=== PATIENT | female | born 1950 | race Caucasian/White ===

== ENCOUNTER → 2024-01-30 09:20 | Outpatient (REF) | payer MEDICARE, OTHER, SELFPAY ==
[2024-01-30 10:50] LABS: % Basophils 0.5 % (0-2); % Eosinophils 1.3 % (0-6); % Immature Granulocytes 0.6 % (0-0.5); % Lymphocytes 20.7 % (20.5-51.1); % Monocytes 6.9 % (1.7-9.3); Absolute Eosinophils 0.1 10^3/uL (0-0.7); Absolute Lymphocytes 1.3 10^3/uL (1.2-3.4); Absolute Monocytes 0.4 10^3/uL (0.1-0.6); Absolute Neutrophils 4.3 10^3/uL (1.4-6.5); Hematocrit 36.5 % (37.0-47.0); Mean Corp Hgb Conc. 32.9 g/dL (33.0-37.0); Mean Corpuscular Hgb 30.1 pg (27.0-31.0); Mean Corpuscular Volume 91.5 fL (81.0-99.0); Mean Platelet Volume 9.7 fL (7.4-10.4); Nucleated Red Blood Cells % 0 %; Platelet Count 264 10^3/uL (130-400); Red Blood Cell Count 3.99 10^6/uL (4.20-5.40); Red Cell Dist. Width 14.2 % (11.5-14.5); White Blood Cell Count 6.2 10^3/uL (4.8-10.8)
[2024-01-30 11:20] LABS: ALT (SGPT) 20 U/L (0-35); AST (SGOT) 34 U/L (14-36); Albumin 4.1 g/dl (3.5-5.0); Alkaline Phosphatase 101 U/L (38-126); Blood Urea Nitrogen 20 mg/dl (7-17); Calcium 9.5 mg/dl (8.4-10.2); Carbon Dioxide 32 mmol/L (22-30); Chloride 102 mmol/L (98-107); Direct Bilirubin 0.3 mg/dl (0.0-0.4); Glucose 110 mg/dl (70-99); HDL Cholesterol 62 mg/dl; Iron 74 ug/dl (37-170); LDL Cholesterol, Calculated 147 mg/dl; Sodium 141 mmol/L (135-145); Total Bilirubin 0.7 mg/dl (0.2-1.3); Total Cholesterol 225 mg/dl (50-199); Total Protein 6.9 g/dl (6.3-8.2); Triglyceride 83 mg/dl (10-149); Very Low Density Lipoprotein 16 mg/dl (0-30); eGFR 59.86
[2024-01-30 11:51] LABS: TSH 1.91 uIU/ml (0.47-4.68)
[2024-01-30 12:10] LABS: Vitamin B12 462 pg/ml (239-931)
== END ==
LOC: REG 09:20
PROVIDERS: ATTENDING PHYSICIAN Internal Medicine Gastroenterology; FAMILY PHYSICIAN Family Medicine
DX: D64.9 Anemia, unspecified (principal); I25.10 Atherosclerotic heart disease of native coronary artery without angina pectoris; M79.18 Myalgia, other site; Z79.899 Other long term (current) drug therapy; K83.9 Disease of biliary tract, unspecified; R14.0 Abdominal distension (gaseous)
CPT/HCPCS: 36415; 80053; 80061; 82248; 82607; 82728; 83540; 84443; 85025

== ENCOUNTER → 2024-02-07 12:49 | Outpatient (REF) | payer MEDICARE, OTHER, SELFPAY | LOC: RAD 12:49 | PROVIDERS: ATTENDING PHYSICIAN Internal Medicine Gastroenterology; FAMILY PHYSICIAN Family Medicine | DX: K83.9 Disease of biliary tract, unspecified (principal) | CPT/HCPCS: 76700 ==

== ENCOUNTER → 2024-02-25 06:31 | Day surgery (SDC) | payer MEDICARE, OTHER, SELFPAY | LOC: GI 06:31 | PROVIDERS: ATTENDING PHYSICIAN Internal Medicine Gastroenterology | DX: K57.30 Diverticulosis of large intestine without perforation or abscess without bleeding (principal); Z86.0101 Personal history of adenomatous and serrated colon polyps; K22.89 Other specified disease of esophagus; K44.9 Diaphragmatic hernia without obstruction or gangrene; K31.89 Other diseases of stomach and duodenum; K21.00 Gastro-esophageal reflux disease with esophagitis, without bleeding | CPT/HCPCS: 45378; 43239; 88305; 88342 ==

== ENCOUNTER 2024-06-14 17:45 | Emergency (ER) | payer MEDICARE, OTHER, SELFPAY ==
[2024-06-14] VITALS (7 sets, daily range): BP systolic 130–152; BP diastolic 71–92; BMI 28.9
[2024-06-14 18:12] LABS: % Basophils 0.5 % (0-2); % Eosinophils 0.6 % (0-6); % Immature Granulocytes 0.6 % (0-0.5); % Lymphocytes 18.5 % (20.5-51.1); % Monocytes 6.6 % (1.7-9.3); % Neutrophils 73.2 % (42.2-75.2); Absolute Lymphocytes 1.2 10^3/uL (1.2-3.4); Absolute Monocytes 0.4 10^3/uL (0.1-0.6); Absolute Neutrophils 4.6 10^3/uL (1.4-6.5); Hematocrit 39.9 % (37.0-47.0); Mean Corp Hgb Conc. 32.6 g/dL (33.0-37.0); Mean Corpuscular Hgb 28.5 pg (27.0-31.0); Mean Corpuscular Volume 87.5 fL (81.0-99.0); Mean Platelet Volume 8.9 fL (7.4-10.4); Nucleated Red Blood Cells % 0 %; Platelet Count 222 10^3/uL (130-400); Red Blood Cell Count 4.56 10^6/uL (4.20-5.40); Red Cell Dist. Width 14.8 % (11.5-14.5); White Blood Cell Count 6.3 10^3/uL (4.8-10.8)
[2024-06-14 18:36] LABS: ALT (SGPT) 37 U/L (0-35); AST (SGOT) 63 U/L (14-36); Albumin 4.4 g/dl (3.5-5.0); Alkaline Phosphatase 96 U/L (38-126); Blood Urea Nitrogen 23 mg/dl (7-17); Calcium 8.9 mg/dl (8.4-10.2); Carbon Dioxide 31 mmol/L (22-30); Chloride 98 mmol/L (98-107); Glucose 101 mg/dl (70-99); Lipase 43 U/L (23-300); Potassium 3.8 mmol/L (3.5-5.1); Sodium 137 mmol/L (135-145); Total Bilirubin 0.6 mg/dl (0.2-1.3); Total Protein 7.5 g/dl (6.3-8.2); eGFR > 60.00
[2024-06-14 19:47] LABS: Urine Albumin Negative (Neg - Trace); Urine Bilirubin Negative (Negative); Urine Character Clear (Clear); Urine Color Yellow; Urine Glucose Negative (Negative); Urine Ketone Trace (Negative); Urine Leukocyte Negative (Negative); Urine Nitrite Negative (Negative); Urine Occult Blood 1+ (Negative); Urine Urobilinogen Negative (Neg - 1+)
[2024-06-14 20:00] LABS: Urine Squamous Cell 26-30 /LPF (Few)
[2024-06-14 20:01] LABS: Urine Bacteria Few (Negative); Urine Red Blood Cell 0-2 /HPF (0-2); Urine White Cell 0-2 /HPF (0-5)
--- NOTE | 2024-06-14 23:30 | ED.GENMED ---
History of Present Illness
General
Chief Complaint: Abdominal Pain
Source: patient
Exam Limitations: none
Time Seen by Provider: 06/14/24 18:42
Nursing documentation reviewed up to this point in time: agreed with
History of Present Illness
History of Present Illness:
Patient to ED with complaint of RUQ abdominal pain. Pain started this afternoon. Describes as sharp. SHe had 1 episode of vomiting and then came to ED. Since arrival in ED pain has subsided. States she had this pain in February and was told she
had gallstones and her bile duct was enlarged. She was advised to have MRI and follow up with general surgery. States she had to cancel her appt due to getting covid and never rescheduled. Brought to ED by friend for eval.
Past History
Past History
ED Past Medical History: Arrthythmia (Atrial fibrillation), Asthma, GERD, HTN, Hypercholesterolemia, Hypothyroidism and Other (IBS, gallstones, Diverticulitis)
ED Past Surgical History: (X 2) and Gynecological (Hysterectomy)
Social History
Tobacco: Non-smoker
Alcohol: Occasional
Personal:
Living: with family
Employment: Not employed
Family History
Family History: Other (Noncontributory)
Review of Systems
Review of Systems
Allergies reviewed?: Yes
All Other Systems: ROS reviewed and negative except as documented in HPI and ROS
Constitutional: Reports no symptoms
EENT: Reports no symptoms
Respiratory: Reports no symptoms
Cardiac: Reports no symptoms
ABD/GI: Reports no symptoms (RUQ pain [employer])
: Reports no symptoms
Musculoskeletal: Reports no symptoms
Skin: Reports no symptoms
Neurological: Reports no symptoms
Psychiatric: Reports no symptoms
Phy Exam
General Physical Exam
General Presentation: well appearing and no apparent distress
General age: appears stated age
General Skin: warm and dry
General Habitus: normal
Cardiovascular Exam
Cardiovascular Exam: regular rate/rhythm and no edema
Pulmonary Exam
Pulmonary Exam: lungs clear, no respiratory distress, no rales and chest non tender
Gastrointestinal Exam
Gastrointestinal Exam: normal bowel sounds, non tender, soft, no organomegaly, non distended and no cva tenderness
Musculoskeletal Exam
Musculoskeletal Exam: full ROM and neuro vasc intact
Skin Exam
Skin Exam: normal color, warm/dry and no rash
Psychiatric Exam
Psychiatric Exam: normal mood/affect
Course
Orders/Labs/Results
Orders:
Orders
06/14/24 18:03
Complete Blood Count/With Diff Urgent
Comprehensive Metabolic Panel Urgent
Lipase Urgent
06/14/24 19:29
US Abdomen Complete/Upper Urgent
Comment:
Reason For Exam: RUQ pain
06/14/24 19:36
Urinalysis Reflex To Culture Urgent
Date Specimen was Collected: 06/14/24
Time Specimen was Collected: 19:34
Urine Microscopic Reflex Cult Urgent
Abnormal Lab Results
06/14/24 06/14/24
18:03 19:36
MCHC 32.6 L g/dL
(33.0-37.0)
RDW 14.8 H %
(11.5-14.5)
Immature Gran % 0.6 H %
(0-0.5)
Lymphocytes % 18.5 L %
(20.5-51.1)
Carbon Dioxide 31 H mmol/L
(22-30)
BUN 23 H mg/dl
(7-17)
Glucose 101 H mg/dl
(70-99)
AST 63 H U/L
(14-36)
ALT 37 H U/L
(0-35)
Urine Ketones Trace A
(Negative)
Ur Occult Blood Reflex 1+ A
(Negative)
Urine Bacteria (Reflex) Few A
(Negative)
06/14/24 18:03
06/14/24 18:03
Vital Signs
Initial and Last Documented VS:
Initial Vital Signs
Temp Pulse Resp BP Pulse Ox
98.5 F 87 18 130/76 97
06/14/24 17:55 06/14/24 17:55 06/14/24 17:55 06/14/24 17:55 06/14/24 17:55
Last Documented Vital Signs
Temp Pulse Resp BP Pulse Ox
98.5 F 75 15 142/74 96
06/14/24 17:55 06/14/24 22:49 06/14/24 22:49 06/14/24 22:49 06/14/24 22:49
*Radiology
Radiology exam reviewed: radiology read reviewed
*Pulse Oximetry
Patient hypoxic: no
*Critical Care Note
Total Time (30-74mins, 75-104mins- exclusive of procedures): Not Applicable
Update Note
Update Note:
Patient to ED with c/o RUQ abd pain and vomiting however symptoms resolved when she arrived in ED. Labs and US reviewed. Gallstones present on US by no evidence of cholecystitis. She remains afebrile. Discussed findings with her. She is
discharged home and will follow up with PCP on Sunday. Given instructions on s/s to return to ED and she is agreeable to plan.
ED Attending Note
-
Portions of this chart may have been created with voice recognition software.� Occasional wrong word or��sound alike� substitutions may have occurred due to the inherent limitations of voice recognition software.
Discharge Plan
Departure
Patient Disposition: Home (Routine Discharge)
Date of Disposition: 06/14/24
Time of Disposition: 22:49
Patient with high blood pressure during this ER visit?: No
Condition: Good
Covid-19: Not Applicable
Discharge Problem:
Abdominal pain
Instructions: Gallstones (DC), Abdominal Pain
Prescriptions:
No Action
trazodone 150 MG tablet
1 tab PO HSPRN PRN (Reason: sleep)
diltiazem HCl 180 mg Tablet Extended Release 24 Hr
180 mg PO DAILY
metoprolol succinate 25 mg tablet extended release 24 hr
25 mg PO DAILY Qty: 90 3RF
famotidine 40 mg Tablet
40 mg PO DAILY
montelukast 10 mg Tablet
10 mg PO HS
fluticasone propionate 50 mcg/actuation [place],Suspension
1 spray INTRANASAL DAILY
Lipitrin
2 cap PO DAILY
ibuprofen 200 mg Capsule
1,000 mg PO Q6H PRN (Reason: pain)
fluticasone propion-salmeterol [Advair HFA] 115-21 mcg/actuation Hfa Aerosol Inhaler
2 puff INHALATION BID
multivitamin Tablet
1 tab PO DAILY
sucralfate [Carafate] 1 gram Tablet
1 g PO BID
Tums
1 tab PO PRN PRN (Reason: indegestion)
acetaminophen 325 mg Tablet
650 mg PO Q4HPRN PRN (Reason: [place], mild pain, or fever >101F) Qty: 0 0RF
clopidogrel 75 mg Tablet
75 mg PO DAILY Qty: 1 0RF
aspirin 81 MG tablet,delayed release (DR/EC)
81 mg PO DAILY Qty: 0 0RF
Referrals:
Isamar Ortiz MD [Family Provider] - Follow up in 2-3 days
Activity Restrictions/Additional Instructions:
Return to the emerency department immediately for any changes in/worsening of your symptoms.
Interventions
Interventions:
*Risk Screen - Suicide Last Done: 06/14/24 17:57
*General Assessment Last Done: 06/14/24 17:57
*Neglect/Abuse Screening Last Done: 06/14/24 17:57
ED- Fall Risk Assessment Last Done: 06/14/24 19:38
*ED COVID-19 Vaccine History Last Done: 06/14/24 19:39
*Nursing Disposition Last Done: 06/14/24 22:53
LI-Yhqrtl-Lwfsezattb Assessment Last Done: 06/14/24 19:39
Discharge Date and Time
Discharge Date/Time: 06/14/24 23:03
Print Language: IRISH
== END 2024-06-14 23:03 | disposition home or self-care (01) ==
LOC: EMR 17:45
PROVIDERS: Nurse Practitioner; EMERGENCY PHYSICIAN Emergency Medicine; FAMILY PHYSICIAN Family Medicine
DX: K80.20 Calculus of gallbladder without cholecystitis without obstruction (principal); E03.9 Hypothyroidism, unspecified; I10 Essential (primary) hypertension; E78.00 Pure hypercholesterolemia, unspecified; I48.91 Unspecified atrial fibrillation; J45.909 Unspecified asthma, uncomplicated; K21.9 Gastro-esophageal reflux disease without esophagitis; K58.9 Irritable bowel syndrome, unspecified; Z90.710 Acquired absence of both cervix and uterus
CPT/HCPCS: 99284; 76700; 80053; 81003; 81015; 83690; 85025

== ENCOUNTER 2024-12-17 13:37 | Outpatient (RCR) | payer MEDICARE, OTHER, SELFPAY | END 2024-12-17 23:59 | disposition home or self-care (01) | LOC: ROT 13:37 | PROVIDERS: ATTENDING PHYSICIAN Student in an Organized Health Care Education/Training Program | DX: S52.501E Unspecified fracture of the lower end of right radius, subsequent encounter for open fracture type I or II with routine healing (principal); S52.601E Unspecified fracture of lower end of right ulna, subsequent encounter for open fracture type I or II with routine healing; S52.021D Displaced fracture of olecranon process without intraarticular extension of right ulna, subsequent encounter for closed fracture with routine healing; Z73.6 Limitation of activities due to disability | CPT/HCPCS: 97010; 97110; 97140; 97166; 97535 ==

== ENCOUNTER 2025-01-16 11:17 | Outpatient (RCR) | payer MEDICARE, OTHER, SELFPAY | END 2025-01-16 23:59 | disposition home or self-care (01) | LOC: ROT 11:17 | PROVIDERS: ATTENDING PHYSICIAN Student in an Organized Health Care Education/Training Program | DX: Z47.89 Encounter for other orthopedic aftercare (principal); S52.501E Unspecified fracture of the lower end of right radius, subsequent encounter for open fracture type I or II with routine healing; S52.601E Unspecified fracture of lower end of right ulna, subsequent encounter for open fracture type I or II with routine healing; S52.021D Displaced fracture of olecranon process without intraarticular extension of right ulna, subsequent encounter for closed fracture with routine healing; Z73.6 Limitation of activities due to disability; W10.9XXD Fall (on) (from) unspecified stairs and steps, subsequent encounter | CPT/HCPCS: 97010; 97018; 97022; 97110; 97112; 97140; 97162; 97530; 97535 ==

== ENCOUNTER 2025-02-17 11:18 | Outpatient (RCR) | payer MEDICARE, OTHER, SELFPAY | END 2025-02-17 23:59 | disposition home or self-care (01) | LOC: ROT 11:18 | PROVIDERS: ATTENDING PHYSICIAN Student in an Organized Health Care Education/Training Program | DX: Z47.89 Encounter for other orthopedic aftercare (principal); S52.501E Unspecified fracture of the lower end of right radius, subsequent encounter for open fracture type I or II with routine healing; S52.601E Unspecified fracture of lower end of right ulna, subsequent encounter for open fracture type I or II with routine healing; S52.021D Displaced fracture of olecranon process without intraarticular extension of right ulna, subsequent encounter for closed fracture with routine healing; Z73.6 Limitation of activities due to disability; M54.2 Cervicalgia; W10.9XXD Fall (on) (from) unspecified stairs and steps, subsequent encounter; M25.511 Pain in right shoulder | CPT/HCPCS: 97010; 97018; 97022; 97110; 97140 ==

== ENCOUNTER 2025-03-11 07:47 | Outpatient (RCR) | payer MEDICARE, OTHER, SELFPAY | END 2025-03-11 23:59 | disposition home or self-care (01) | LOC: ROT 07:47 | PROVIDERS: ATTENDING PHYSICIAN Student in an Organized Health Care Education/Training Program | DX: Z47.89 Encounter for other orthopedic aftercare (principal); S52.501E Unspecified fracture of the lower end of right radius, subsequent encounter for open fracture type I or II with routine healing; S52.601E Unspecified fracture of lower end of right ulna, subsequent encounter for open fracture type I or II with routine healing; S52.021D Displaced fracture of olecranon process without intraarticular extension of right ulna, subsequent encounter for closed fracture with routine healing; Z73.6 Limitation of activities due to disability; M54.2 Cervicalgia; M25.511 Pain in right shoulder; W10.9XXD Fall (on) (from) unspecified stairs and steps, subsequent encounter | CPT/HCPCS: 97010; 97022; 97110; 97140 ==

== ENCOUNTER → 2025-04-27 10:36 | Outpatient (REF) | payer MEDICARE, OTHER, SELFPAY | LOC: HWRAD 10:36 | PROVIDERS: ATTENDING PHYSICIAN Orthopaedic Surgery; FAMILY PHYSICIAN Registered Nurse | DX: M25.521 Pain in right elbow (principal) | CPT/HCPCS: 73200 ==

== ENCOUNTER → 2025-05-06 13:00 | Outpatient (REF) | payer MEDICARE, OTHER, SELFPAY | LOC: HWRAD 13:00 | PROVIDERS: ATTENDING PHYSICIAN Registered Nurse | DX: M81.0 Age-related osteoporosis without current pathological fracture (principal); Z12.31 Encounter for screening mammogram for malignant neoplasm of breast | CPT/HCPCS: 77063; 77067 ==